=== PATIENT | female | born 1935 | race Caucasian/White ===

== ENCOUNTER → 2020-10-28 | Outpatient (CLI) | payer OTHER | END | disposition home or self-care (01) | LOC: NUCLEAR 14:00 → EDBD 14:02 → NUCLEAR 14:02 | PROVIDERS: ATTEND Specialist | DX: R07.89 Other chest pain (principal); I27.29 Other secondary pulmonary hypertension; R06.00 Dyspnea, unspecified | CPT/HCPCS: 78582; A9567; A9540 ==